=== PATIENT | female | born 1990 ===

== ENCOUNTER 2017-03-22 01:51 | Emergency (ER) | payer OTHER ==
[2017-03-22 02:11] VITALS: BMI 28.3
--- NOTE | 2017-03-22 02:42 | OBHP ---
Datetime: 03/22/2017 02:35 IP Adm Impression: , intrauterine IP Admit Plan: Admit to unit IP Admit Plan Other: transfer Admit Comment, IP Provider: at 27.6weeks came with c/o lof started 02.20. pt came from [place] in a flight today.started lof ,no ctxs, vb ,+fm. pt had pnc in [facility]. obhx 1 x sab pmh den med pnv all nkda psh den soch de sse +pooling+nitrazine ,closeed cervix bss vertex a/p at 27+weeks pprom transfer to [facility]. spoke to dr [email or web address].agrees betamethasone 12 mg im. r/a/b discussed yto pateint. pt understand and agrees about [facility]. Pelvic Type - PN: Adequate Extremities - PN: Normal Abdomen - PN: Normal Back - PN: Normal Breast - PN: Not Done Lungs - PN: Normal Heart - PN: Normal Thyroid - PN: Not Done Neurologic - PN: Normal HEENT - PN: Normal General - PN: Normal FHR - Baseline A Provider: 140 Contraction Comments Provider: none Comments, ACOG Physical Exam: gravid,non tender ext no edema,no calf ten se +poooling,+nitrazine EGA AdmitDate IP: 27.6 Vital Signs Provider: Reviewed; Within Normal Limits IP Indication for Induction: PROM IP Chief Complaint: Suspected ruptured membranes NICHD Variability Prov Fetus A: Moderate 6-25bpm NICHD Accel Fetus A IP Provider: [id number] FHR Category Provider Fetus A: Category I NICHD Decel Fetus A IP Provider: None Dilatation, Provider: 0 Effacement, Provider: 0 Genitourinary Exam: Normal DTRs - PN: Normal
[2017-03-22] MEDS ORDERED: Betamethasone Soluspan 30 mg/5mL Inj Susp IM STA (02:43)
[2017-03-22 11:07] VITALS: BP 125/76; PULSE 87; RESP 18; TEMP 98.5
== END 2017-03-22 05:19 | disposition short-term general hospital (02) ==
LOC: C.EROB 01:51
DX: O26.892 Other specified pregnancy related conditions, second trimester (principal); Z3A.27 27 weeks gestation of pregnancy
CPT/HCPCS: 96365; 96372; 99283; J0702; J1364; J7050